=== PATIENT | female | born 1960 | race African-American/Black ===

== ENCOUNTER 2019-08-04 14:24 | Emergency (ER) | payer SELFPAY ==
[~2019-08-04] VITALS: Ht 175.3 cm; Wt 61.4 kg
[2019-08-04] MEDS ORDERED: BACITRACIN 0.9 GM PACKET OINTMENT TP ONE (14:45)
[2019-08-04] MEDS ORDERED: ACETAMINOPHEN 500 MG TABLET PO ONE (14:45)
[2019-08-04 15:12] VITALS: BP 126/85
== END 2019-08-04 15:17 | disposition home or self-care (01) ==
LOC: EMS 14:29
DX: S00.86XA Insect bite (nonvenomous) of other part of head, initial encounter (principal); Z88.8 Allergy status to other drugs, medicaments and biological substances; W57.XXXA Bitten or stung by nonvenomous insect and other nonvenomous arthropods, initial encounter; Y93.89 Activity, other specified; Y92.89 Other specified places as the place of occurrence of the external cause; Y99.8 Other external cause status